=== PATIENT | male | born 2000 | race African-American/Black ===

== ENCOUNTER 2022-05-12 02:02 | Emergency (ER) | payer OTHER ==
[~2022-05-12] VITALS: Ht 170.2 cm; Wt 95.0 kg
[2022-05-12 02:43] VITALS: BP 126/78
== END 2022-05-12 08:13 | disposition left against medical advice (07) ==
LOC: ER 02:02
DX: Z53.21 Procedure and treatment not carried out due to patient leaving prior to being seen by health care provider (principal)

== ENCOUNTER 2024-10-14 20:17 | Emergency (ER) | payer SELFPAY ==
[~2024-10-14] VITALS: Ht 167.6 cm; Wt 84.0 kg
[2024-10-14 20:28] VITALS: O2SAT 100
[2024-10-14 20:59] LABS: CLARITY URINE TURBID (CLEAR); COLOR URINE YELLOW (YELLOW); GLUCOSE URINE NEGATIVE (NEGATIVE); KETONES URINE NEGATIVE (NEGATIVE); LEUKOCYTE ESTERASE URINE NEGATIVE (NEGATIVE); NITRITE URINE NEGATIVE (NEGATIVE); OCCULT BLOOD URINE NEGATIVE (NEGATIVE); PROTEIN URINE TRACE (NEGATIVE); SPECIFIC GRAVITY URINE 1.024 (1.005-1.030)
[2024-10-14 21:17] LABS: SQUAMOUS EPITHELIAL CELL URINE FEW /lpf (RARE/1+)
[2024-10-14 21:18] LABS: BACTERIA URINE 1+
[2024-10-14 21:19] LABS: AMORPHOUS SEDIMENT URINE 2+ /lpf
[2024-10-14] MEDS ORDERED: DOXY100C5 MT (23:39)
[2024-10-15] MEDS: CEFTRIAXONE SODIUM 500MG VIAL IM ONE (00:12)
[2024-10-15] MEDS: LIDOCAINE HCL 1% 20ML VIAL INFIL ONE (00:13)
[2024-10-15 00:14] VITALS: BP 109/70; PULSE 83; RESP 19; TEMP 36.7; O2SAT 100
== END 2024-10-15 00:15 | disposition home or self-care (01) ==
LOC: ER 20:17
DX: R30.0 Dysuria (principal); A64 Unspecified sexually transmitted disease; J45.909 Unspecified asthma, uncomplicated; Z11.3 Encounter for screening for infections with a predominantly sexual mode of transmission; Z79.899 Other long term (current) drug therapy
CPT/HCPCS: 99283; 87491; 87591; 81003; 96372; J0696; J3490

== ENCOUNTER 2025-06-05 15:54 | Emergency (ER) | payer MEDICAID ==
[~2025-06-05] VITALS: Ht 175.3 cm; Wt 82.0 kg
[~2025-06-05 15:54] MED LIST: DOXY100C5 MT
[2025-06-05 16:01] VITALS: O2SAT 100
[2025-06-05] MEDS: IBUPROFEN 600MG TABLET PO ONE (17:07)
[2025-06-05] MEDS: TETANUS, DIPHTHERIA, PERTUSSIS VAC/PF 0.5ML (>10YR OLD) IM ONE (17:07)
[2025-06-05] MEDS ORDERED: BO1 TP (18:09)
[2025-06-05 18:15] VITALS: BP 119/86; PULSE 82; RESP 18; TEMP 36.5; O2SAT 100
== END 2025-06-05 18:32 | disposition home or self-care (01) ==
LOC: ER 15:54
DX: S01.01XA Laceration without foreign body of scalp, initial encounter (principal); S09.90XA Unspecified injury of head, initial encounter; J45.909 Unspecified asthma, uncomplicated; Y09 Assault by unspecified means; Y93.01 Activity, walking, marching and hiking; Y92.89 Other specified places as the place of occurrence of the external cause; Y99.8 Other external cause status
CPT/HCPCS: 70450; 90715; 12002; 90471; 99285; Z7610 ×2